=== PATIENT | female | born 1970 | race Caucasian/White ===

== ENCOUNTER → 2016-08-11 | Outpatient (CLI) | payer OTHER ==
[~2016-08-11] MED LIST: AMOXICILLIN 50500 MG PO; CEPHALEXIN500 M1 PO; DEPO-PROVER150 MG/M1 IM; EFFEXOR 3737.5 MG/TA PO; EFFEXOR 75M75 MG/TAB PO; FLEXERIL 1010 MG/TAB PO; FLEXERIL5 MG PO; IBU-8800 MG PO; LORTAB 5/500 501 TAB PO; MEDROL 4MG DOSPA4 MG PO; MOTRIN 600600 MG/TAB PO; MOTRIN 800800 MG/TAB PO; NAPROSYN500 MG PO; NO HOME MEDICATIONS; NORCO 325 MG-51 TAB PO; NORCO 325 MG-7.1 TAB PO; PENICILLIN V500 MG PO; PERIDEX (CHLOR480 ML MM; PREDNISONE20 MG PO; PROAIR HFA0.09 MG/AC IH; SEPTRA DS 8001 TAB PO; VALIUM 10MG10 MG/TAB PO; VALIUM 5MG T5 MG/TAB PO; VOLTAREN 75 DR75 MG PO; ZITHROMAX Z PA250 MG PO
== END ==
LOC: COL.RAD 12:28 → COL.LAB 12:28
DX: M51.36 Other intervertebral disc degeneration, lumbar region (principal)

== ENCOUNTER 2016-09-15 09:33 | Emergency (ER) | payer MEDICAID ==
[~2016-09-15] VITALS: Ht 162.6 cm; Wt 61.8 kg
[~2016-09-15 09:33] MED LIST changes: -EFFEXOR 75M75 MG/TAB PO; -PREDNISONE20 MG PO; -PROAIR HFA0.09 MG/AC IH; -VOLTAREN 75 DR75 MG PO; -ZITHROMAX Z PA250 MG PO
[2016-09-15 09:37] VITALS: BP 135/82
[2016-09-15] MEDS ORDERED: NORCO 325 MG-51 TAB PO (11:25)
[2016-09-15 11:29] LABS: PH 6 (5-8); SQUAMOUS EPITHELIAL 20-50 /hpf; URINE APPEARANCE Hazy; URINE BACTERIA Rare /hpf; URINE BILIRUBIN Negative (NEGATIVE); URINE BLOOD Negative (NEGATIVE); URINE COLOR Amber; URINE GLUCOSE Negative (NEGATIVE); URINE KETONE Trace (NEGATIVE); URINE RBC 0-2 /hpf
[2016-09-15 11:48] VITALS: PULSE 73; TEMP 97.3
== END 2016-09-15 11:46 | disposition home or self-care (01) ==
LOC: COL.ER 09:33
PROVIDERS: Nurse Practitioner
DX: S30.0XXA Contusion of lower back and pelvis, initial encounter (principal); W10.9XXA Fall (on) (from) unspecified stairs and steps, initial encounter
CPT/HCPCS: J1885

== ENCOUNTER 2016-11-06 12:05 | Emergency (ER) | payer MEDICAID ==
[~2016-11-06] VITALS: Ht 162.6 cm; Wt 61.4 kg
[2016-11-06 12:07] VITALS: BP 121/85; PULSE 88; TEMP 98
== END 2016-11-06 14:27 | disposition home or self-care (01) ==
LOC: COL.ER 12:05
DX: S43.401A Unspecified sprain of right shoulder joint, initial encounter (principal); W01.198A Fall on same level from slipping, tripping and stumbling with subsequent striking against other object, initial encounter; M25.551 Pain in right hip

== ENCOUNTER 2016-12-22 10:00 | Emergency (ER) | payer MEDICAID ==
[~2016-12-22] VITALS: Ht 162.6 cm; Wt 68.2 kg
[2016-12-22 10:02] VITALS: BP 126/79; TEMP 98.4
[2016-12-22] MEDS ORDERED: EFFEXOR 75M75 MG/TAB PO (10:06)
[2016-12-22] MEDS ORDERED: AMOXICILLIN 50500 MG PO (10:38)
[2016-12-22 10:56] VITALS: PULSE 86
== END 2016-12-22 10:56 | disposition home or self-care (01) ==
LOC: COL.ER 10:00
DX: H92.03 Otalgia, bilateral (principal); F17.210 Nicotine dependence, cigarettes, uncomplicated

== ENCOUNTER 2017-02-01 08:40 | Emergency (ER) | payer MEDICAID ==
[~2017-02-01] VITALS: Ht 162.6 cm; Wt 52.3 kg
[~2017-02-01 08:40] MED LIST changes: +EFFEXOR 75M75 MG/TAB PO
[2017-02-01 08:47] VITALS: BP 134/85; PULSE 74; TEMP 97.8
== END 2017-02-01 10:00 | disposition home or self-care (01) ==
LOC: COL.ER 08:40
DX: S63.501A Unspecified sprain of right wrist, initial encounter (principal); X50.0XXA Overexertion from strenuous movement or load, initial encounter; F32.9 Major depressive disorder, single episode, unspecified

== ENCOUNTER 2017-02-12 11:22 | Emergency (ER) | payer MEDICAID ==
[~2017-02-12] VITALS: Ht 162.6 cm; Wt 68.2 kg
[2017-02-12 11:24] VITALS: BP 142/92; TEMP 97.6
[2017-02-12 12:23] VITALS: PULSE 75
== END 2017-02-12 12:24 | disposition home or self-care (01) ==
LOC: COL.ER 11:22
DX: M25.531 Pain in right wrist (principal); M25.431 Effusion, right wrist
CPT/HCPCS: J1885

== ENCOUNTER 2017-02-13 13:09 | Emergency (ER) | payer MEDICAID ==
[2017-02-13 13:27] VITALS: BP 144/81; PULSE 76; TEMP 97.9
[2017-02-14] MEDS ORDERED: VOLTAREN 75 DR75 MG PO (18:34)
[2017-02-14] MEDS ORDERED: PREDNISONE20 MG PO (18:34)
== END 2017-02-13 14:59 | disposition home or self-care (01) ==
LOC: COL.ER 13:09
DX: G43.909 Migraine, unspecified, not intractable, without status migrainosus (principal); M25.531 Pain in right wrist; M25.431 Effusion, right wrist; F17.210 Nicotine dependence, cigarettes, uncomplicated; F32.9 Major depressive disorder, single episode, unspecified; G89.29 Other chronic pain; Z86.19 Personal history of other infectious and parasitic diseases; X50.3XXA Overexertion from repetitive movements, initial encounter
CPT/HCPCS: J1885

== ENCOUNTER 2017-02-14 16:53 | Emergency (ER) | payer MEDICAID ==
[~2017-02-14] VITALS: Ht 162.6 cm; Wt 68.2 kg
[2017-02-14 17:05] VITALS: TEMP 98.1
[2017-02-14] MEDS ORDERED: PREDNISONE20 MG PO (18:34)
[2017-02-14] MEDS ORDERED: VOLTAREN 75 DR75 MG PO (18:34)
[2017-02-14 18:50] VITALS: BP 172/99; PULSE 85
== END 2017-02-14 18:50 | disposition home or self-care (01) ==
LOC: COL.ER 16:53
DX: G89.29 Other chronic pain (principal); M25.531 Pain in right wrist; F17.210 Nicotine dependence, cigarettes, uncomplicated; Z87.19 Personal history of other diseases of the digestive system; Z98.51 Tubal ligation status
CPT/HCPCS: J7512

== ENCOUNTER 2017-02-26 14:44 | Emergency (ER) | payer MEDICAID ==
[~2017-02-26] VITALS: Ht 162.6 cm; Wt 68.2 kg
[~2017-02-26 14:44] MED LIST changes: +PREDNISONE20 MG PO; +VOLTAREN 75 DR75 MG PO
[2017-02-26 14:48] VITALS: BP 121/80; TEMP 98.6
[2017-02-26] MEDS ORDERED: ZITHROMAX Z PA250 MG PO (15:55)
[2017-02-26] MEDS ORDERED: PROAIR HFA0.09 MG/AC IH (15:55)
[2017-02-26 16:01] VITALS: PULSE 98
[2017-08-06] MEDS ORDERED: AMOXICILLIN 8751 TAB PO (13:50)
== END 2017-02-26 16:01 | disposition home or self-care (01) ==
LOC: COL.ER 14:44
DX: J20.9 Acute bronchitis, unspecified (principal); F17.200 Nicotine dependence, unspecified, uncomplicated; F32.9 Major depressive disorder, single episode, unspecified

== ENCOUNTER 2017-02-28 08:51 | Outpatient (RCR) | payer MEDICAID ==
[~2017-02-28 08:51] MED LIST changes: +PROAIR HFA0.09 MG/AC IH; +ZITHROMAX Z PA250 MG PO
[2017-04-09] MEDS ORDERED: ROBAXIN 75750 MG/TAB PO (10:30)
[2017-04-09] MEDS ORDERED: LAMICTAL ODT50 MG TL (10:31)
== END 2017-05-29 | disposition still patient (30) ==
LOC: MKS.ESL.PT
DX: M54.42 Lumbago with sciatica, left side (principal); M54.41 Lumbago with sciatica, right side; G89.29 Other chronic pain; F17.200 Nicotine dependence, unspecified, uncomplicated
CPT/HCPCS: G0283-GP

== ENCOUNTER 2017-04-09 10:25 | Emergency (ER) | payer MEDICAID ==
[~2017-04-09] VITALS: Ht 162.6 cm; Wt 68.2 kg
[2017-04-09 10:27] VITALS: BP 119/63; TEMP 98.2
[2017-04-09] MEDS ORDERED: ROBAXIN 75750 MG/TAB PO (10:30)
[2017-04-09] MEDS ORDERED: LAMICTAL ODT50 MG TL (10:31)
[2017-04-09 12:05] VITALS: PULSE 91
== END 2017-04-09 12:05 | disposition home or self-care (01) ==
LOC: COL.ER 10:25
DX: M25.562 Pain in left knee (principal); G89.29 Other chronic pain

== ENCOUNTER 2017-06-04 11:10 | Emergency (ER) | payer MEDICAID ==
[~2017-06-04] VITALS: Ht 162.6 cm; Wt 63.6 kg
[~2017-06-04 11:10] MED LIST changes: +LAMICTAL ODT50 MG TL; +ROBAXIN 75750 MG/TAB PO
[2017-06-04 11:13] VITALS: BP 117/75; TEMP 98.4
[2017-06-04 12:08] LABS: INFLUENZA A NEGATIVE; INFLUENZA B NEGATIVE
[2017-06-04] MEDS ORDERED: ZOFRAN 4MG T4 MG/TAB PO (13:48)
[2017-06-04 14:24] VITALS: PULSE 56
== END 2017-06-04 14:24 | disposition home or self-care (01) ==
LOC: COL.ER 11:10
PROVIDERS: Nurse Practitioner
DX: R11.10 Vomiting, unspecified (principal); R51 Headache; F32.9 Major depressive disorder, single episode, unspecified; F17.210 Nicotine dependence, cigarettes, uncomplicated
CPT/HCPCS: J1200; J1885; J2550

== ENCOUNTER 2017-07-23 14:44 | Emergency (ER) | payer SELFPAY ==
[~2017-07-23] VITALS: Ht 162.6 cm; Wt 65.9 kg
[~2017-07-23 14:44] MED LIST changes: +ZOFRAN 4MG T4 MG/TAB PO
[2017-07-23 14:45] VITALS: BP 121/84; PULSE 12; TEMP 97.8
[2017-07-23] MEDS ORDERED: BACTRIM DS 8001 TAB PO (16:30)
[2017-07-23] MEDS ORDERED: NORCO 325 MG-51 TAB PO (16:30)
== END 2017-07-23 16:40 | disposition home or self-care (01) ==
LOC: COL.ER 14:44
DX: N61.1 Abscess of the breast and nipple (principal)

== ENCOUNTER 2017-07-31 13:21 | Emergency (ER) | payer SELFPAY ==
[~2017-07-31] VITALS: Ht 162.6 cm; Wt 65.0 kg
[~2017-07-31 13:21] MED LIST changes: +BACTRIM DS 8001 TAB PO
[2017-07-31 13:24] VITALS: BP 141/64; PULSE 84; TEMP 98.1
[2017-07-31] MEDS ORDERED: ULTRAM 50MG TAB50 MG PO (14:56)
[2017-08-06] MEDS ORDERED: AMOXICILLIN 8751 TAB PO (13:50)
== END 2017-07-31 15:11 | disposition home or self-care (01) ==
LOC: COL.ER 13:21
DX: N61.1 Abscess of the breast and nipple (principal); F17.210 Nicotine dependence, cigarettes, uncomplicated

== ENCOUNTER 2017-09-10 10:39 | Emergency (ER) | payer SELFPAY ==
[~2017-09-10] VITALS: Ht 162.6 cm; Wt 65.0 kg
[~2017-09-10 10:39] MED LIST changes: +AMOXICILLIN 8751 TAB PO; +ULTRAM 50MG TAB50 MG PO
[2017-09-10 10:41] VITALS: BP 131/83; TEMP 97.9
[2017-09-10] MEDS ORDERED: BACTRIM DS 8001 TAB PO (11:23)
[2017-09-10 11:32] VITALS: PULSE 91
== END 2017-09-10 11:33 | disposition home or self-care (01) ==
LOC: COL.ER 10:39
DX: N61.0 Mastitis without abscess (principal); Z98.51 Tubal ligation status

== ENCOUNTER 2018-02-18 10:43 | Emergency (ER) | payer SELFPAY ==
[~2018-02-18] VITALS: Ht 162.6 cm; Wt 64.1 kg
[2018-02-18 10:50] VITALS: BP 129/78; TEMP 97.9
[2018-02-18 12:32] VITALS: PULSE 62
== END 2018-02-18 12:32 | disposition home or self-care (01) ==
LOC: COL.ER 10:43
DX: R11.10 Vomiting, unspecified (principal); F32.9 Major depressive disorder, single episode, unspecified; G89.29 Other chronic pain; F17.210 Nicotine dependence, cigarettes, uncomplicated; Z79.899 Other long term (current) drug therapy; Z98.51 Tubal ligation status
CPT/HCPCS: J1885; J2405

== ENCOUNTER 2018-03-15 09:39 | Emergency (ER) | payer SELFPAY ==
[~2018-03-15] VITALS: Ht 162.6 cm; Wt 61.4 kg
[2018-03-15 09:41] VITALS: TEMP 98.3
[2018-03-15] MEDS ORDERED: ZITHROMAX Z PA250 MG PO (11:08)
[2018-03-15 12:25] VITALS: BP 111/85; PULSE 70
== END 2018-03-15 12:25 | disposition home or self-care (01) ==
LOC: COL.ER 09:39
DX: J20.9 Acute bronchitis, unspecified (principal); F17.210 Nicotine dependence, cigarettes, uncomplicated
CPT/HCPCS: J1885

== ENCOUNTER 2018-10-31 06:33 | Emergency (ER) | payer SELFPAY ==
[~2018-10-31] VITALS: Ht 10.2 cm; Wt 65.9 kg
[2018-10-31 06:37] VITALS: TEMP 97
[2018-10-31] MEDS ORDERED: ZOFRAN ODT8 MG PO (07:04)
[2018-10-31 08:36] VITALS: BP 103/62; PULSE 91
== END 2018-10-31 08:37 | disposition home or self-care (01) ==
LOC: COL.ER 06:33
DX: R11.0 Nausea (principal); Z98.51 Tubal ligation status; Z87.891 Personal history of nicotine dependence
CPT/HCPCS: J1885; J2550

== ENCOUNTER 2019-02-03 09:40 | Emergency (ER) | payer SELFPAY ==
[~2019-02-03] VITALS: Ht 162.6 cm; Wt 68.2 kg
[~2019-02-03 09:40] MED LIST changes: +ZOFRAN ODT8 MG PO
[2019-02-03 09:45] VITALS: BP 135/77; PULSE 82; TEMP 97.2
[2019-02-03] MEDS ORDERED: GENTAMICIN EYE D5 ML OD (10:12)
== END 2019-02-03 10:41 | disposition home or self-care (01) ==
LOC: COL.ER 09:40
DX: S05.02XA Injury of conjunctiva and corneal abrasion without foreign body, left eye, initial encounter (principal); F17.210 Nicotine dependence, cigarettes, uncomplicated; X58.XXXA Exposure to other specified factors, initial encounter

== ENCOUNTER 2019-05-24 08:42 | Emergency (ER) | payer SELFPAY ==
[~2019-05-24] VITALS: Ht 162.6 cm; Wt 68.2 kg
[~2019-05-24 08:42] MED LIST changes: +GENTAMICIN EYE D5 ML OD
[2019-05-24 08:49] VITALS: BP 137/89; TEMP 97.5
[2019-05-24] MEDS ORDERED: DOXYCYCLINE 10100 MG PO (09:19)
[2019-05-24 09:26] VITALS: PULSE 93
== END 2019-05-24 09:26 | disposition home or self-care (01) ==
LOC: COL.ER 08:42
DX: M79.89 Other specified soft tissue disorders (principal); F32.9 Major depressive disorder, single episode, unspecified; F17.210 Nicotine dependence, cigarettes, uncomplicated; Z98.51 Tubal ligation status; Z98.890 Other specified postprocedural states

== ENCOUNTER 2019-07-10 09:24 | Emergency (ER) | payer SELFPAY ==
[~2019-07-10] VITALS: Ht 162.6 cm; Wt 68.2 kg
[~2019-07-10 09:24] MED LIST changes: +DOXYCYCLINE 10100 MG PO
[2019-07-10 09:29] VITALS: BP 130/84; PULSE 98; TEMP 98.8
[2019-07-10 10:00] LABS: STREP SCREEN NEGATIVE
== END 2019-07-10 11:51 | disposition left against medical advice (07) ==
LOC: COL.ER 09:24
PROVIDERS: Emergency Medicine
DX: J11.1 Influenza due to unidentified influenza virus with other respiratory manifestations (principal); F17.210 Nicotine dependence, cigarettes, uncomplicated; Z98.51 Tubal ligation status
CPT/HCPCS: J1885

== ENCOUNTER 2020-10-01 02:37 | Observation (INO) | payer SELFPAY ==
[~2020-10-01] VITALS: Ht 162.6 cm; Wt 72.7 kg
[2020-10-01 02:53] LABS: COLLECTION METHOD CLEAN CATCH
[2020-10-01 03:06] LABS: MUCOUS Present /lpf; PH 5 (5-8); URINE APPEARANCE Hazy; URINE BACTERIA None Seen /hpf; URINE BILIRUBIN Negative (NEGATIVE); URINE BLOOD 2+ (NEGATIVE); URINE COLOR Yellow; URINE GLUCOSE Negative (NEGATIVE); URINE KETONE Negative (NEGATIVE); URINE LEUKOCYTE ESTERASE 3+ (NEGATIVE); URINE NITRATE Negative (NEGATIVE); URINE PROTEIN(semi-quant) Negative (NEGATIVE)
[2020-10-01 03:27] LABS: BASO # 0.1 (0.0-0.2); BASO % 0.8 % (0.0-2.0); EOS # 0.1 (0.0-0.7); EOS % 0.6 % (0-4.0); GRAN # 6.9 (1.4-6.5); GRAN % 69.1 % (42.2-75.2); HEMATOCRIT 40.8 % (37.0-47.0); LYMPH # 2.3 (1.2-3.4); LYMPH % 22.5 % (20.0-51.0); MEAN CELL VOLUME 91 fl (80.0-100.0); MEAN CORPUSCULAR HEMOGLOBIN 29 pg (27.0-31.0); MEAN CORPUSCULAR HGB CONC 32 g/dl (33.0-37.0); MEAN PLATELET VOLUME 10.8 fl (7.4-10.4); MONO # 0.7 (0.1-0.6); MONO % 6.5 % (1.7-9.3); PLATELET COUNT 322 K/mm3 (130-400); RED BLOOD COUNT 4.47 M/mm3 (4.10-5.30)
[2020-10-01 03:39] LABS: BILIRUBIN,TOTAL 0.6 mg/dL (0.0-1.0); CALCIUM 8.9 mg/dL (8.4-10.2); CREATININE, serum 0.95 (0.52-1.25); TOTAL PROTEIN 8.2 gm/dL (6.4-8.2)
[2020-10-01 03:44] LABS: POTASSIUM 4.7 mmol/L (3.4-5.0)
[2020-10-01 08:00] VITALS: BP 125/69; PULSE 65; PULSE 95; TEMP 97.9
--- NOTE | 2020-10-01 08:46 | NUR ---
Patient lying in bed with eyes closed. Patient was brought to room from ER via wheelchair. Transferred self from wheelchair to bed. Patient is alert and oriented x4. Rates pain all over abd 5/10, does moan occasionally and pain increases with movement. Patient is not certain when her last bowel movement was. Audible bowel sounds in all quads. Patient does have a bruise above left eyebrow that she says she sustained from running into a door. Patient oriented to room.
--- NOTE | 2020-10-01 10:13 | NUR ---
Lab in room and after multiple attempts unable to get labs done due to poor venous access. NAOMY Kellogg, updated.
[2020-10-01 11:32] VITALS: BP 110/63; PULSE 68; TEMP 97.8
--- NOTE | 2020-10-01 11:42 | NUR ---
Patient lying in bed on right side with eyes closed. Opens eyes when name called out. Explain that we are going to apply Nicotine patch and also connect her to IV fluids. Patient assisted into bathroom to urinate, returns to bed. Connected to IV fluids and patch applied. Rating pain in abd 6/10 at this time. Denies additional needs.
--- NOTE | 2020-10-01 13:56 | NUR ---
Lying in bed talking with visitor. Discuss with the patient bowel rest and being NPO. Provide mouth swabs to the patient to moisten mouth. Rating pain 7/10 in abd at this time. Contact Dr. Jordan and he will place orders for pain medication at this time. Will administer as prescribed after pharmacy verifies. Patient is aware and agrees to plan.
--- NOTE | 2020-10-01 15:17 | NUR ---
Atm Mechanic met with patient to discuss discharge planning. Patient kept her eyes closed during intake and SW had to ask patient to repeat herself throughout the intake as she spoke very softly. Patient reports she lives in [place] with her son, Feliciano and her roommate, Valerie (ph#[phone]). Patient does not have a phone number for Feliciano as she doesn't have a phone. Patient also states her boyfriend, Tomás stays with them often. Patient does not have primary care, but states she may be open to having an appointment set up at [facility] as she does not have health insurance at this time. Patient does not use DME and is independent with ADLS. Patient does not have DPOA-HC. Patient states she is seperated, but still legally to her , Lacy Low. SW advised patient that Lacy would be her legal next of kin and health care decision maker if she was unable to make health care decisions since she does not have DPOA-HC. Patient does not want Lacy to make her medical decisions and asks that SW follow up later or tomorrow when she's feeling better to complete DPOA-HC. Discharge Plan: Home
[2020-10-01 16:00] VITALS: BP 132/73; PULSE 82; TEMP 98.6
--- NOTE | 2020-10-01 16:30 | NUR ---
Patient is sleeping in bed, no signs of facial or extremities expression of pain.
--- NOTE | 2020-10-01 17:30 | NUR ---
Lying in bed with eyes closed. Respirations even and unlabored. No signs or symptoms of discomfort noted at this time. Agree with assessment and notes entered by Lizette student nurse.
[2020-10-01 20:00] VITALS: BP 117/58; PULSE 69; TEMP 97.4
--- NOTE | 2020-10-01 20:30 | NUR ---
Patient assesed at this time. Alert and oriented x 4, and able to make needs known. Denies having pain and discomfort at this time. Peripheral IV to left hand with fluids running per orders. Denies SOB and dyspnea. LS CTA. Respirations even and unlabored. Capillary refill less than 3 seconds. Non-tenting skin turgor. BS hypoactive. Abdomen round and firm. Denies passing gas. No edema. Voices no questions, needs, or concerns at this time. Resting in bed with call light within reach.
--- NOTE | 2020-10-01 23:15 | NUR ---
Patient complained of headache. Only has order for morphine. Called NAOMY Mcmullen. New order for Acetamionophen. Given as ordered at this time. Voices no further questions, needs, or concerns at this time. Resting in bed with call light within reach.
[2020-10-02 00:16] VITALS: BP 121/79; PULSE 70; TEMP 97.7
[2020-10-02 04:09] VITALS: BP 120/73; PULSE 65; TEMP 98.1
--- NOTE | 2020-10-02 05:41 | NUR ---
Patient had complained of abdominal pain, and was given PRN Acetaminophen for pain. Resting in bed with call light within reach and eyes closed at this time. Patient continues on IV fluids and antibiotics per orders. Did take sips of water and ice chips during the night. Denies nausea. When taken to the bathroom, patient is passing lots of gas this morning. Voices no questions, needs, or concerns at this time. Resting in bed with call light within reach.
--- NOTE | 2020-10-02 07:35 | NUR ---
PATIENT ALERT & ORIENTED. VITAL SIGNS STABLE. RATES INTERMITTENT ABDOMINAL PAIN /. PATIENT ADMITTED WITH SMALL BOWEL OBSTRUCTION AND UTI. BOWEL SOUNDS HYPOACTIVE X4. PATIENT PASSING GAS. TOLERATING ICE CHIPS AND SIPS OF LIQUID WITH NO N/V. ALL OTHER ASSESSMENTS WITHIN NORMAL LIMITS. IV LEFT HAND WITH LR RUNNING @ 75 ML/HR WITH NO REDNESS, DRAINAGE, OR EDEMA. DENIES OTHER NEEDS AT THIS TIME. WILL CONTINUE TO MONITOR PAIN AND FOR ANY N/V. CALL LIGHT WITHIN REACH.
--- NOTE | 2020-10-02 07:35 | NUR ---
PATIENT SHIFT ASSESSMENT COMPLETED BY THIS NURSE AND SN STANFORD. ASSESSMENT DOCUMENTED BY SN STANFORD.
[2020-10-02 07:49] VITALS: BP 115/82; PULSE 78; TEMP 97.9
--- NOTE | 2020-10-02 08:05 | NUR ---
LAB NOTIFIED THIS NURSE THAT THEY HAVE ATTEMPTED TO OBTAIN AM LABS TWICE THIS MORNING WITHOUT SUCCESS. NEW [employer] COMES ON AT 1400. NAOMY BAIN NOTIFIED. VORAlyse THAT ITS OKAY TO WAIT AND ATTEMPT TO OBTAIN AM LABS WHEN THE NEXT SHIFT ARRIVES. LAB CALLED AND NOTIFIED.
--- NOTE | 2020-10-02 09:30 | NUR ---
PATIENT COMPLAINED OF NAUSEA TO SN RADHA. UPON ENTRY TO ROOM JAZMINET VOMITED SMALL AMOUNT OF EMESIS AFTER TRYING FEW BITES OF BREAKFAST TRAY. PATIENT GIVEN IV ONDANSETRON. PATIENT ALERT & ORIENTED. WILL CONTINUE TO MONITOR.
[2020-10-02 12:00] VITALS: BP 112/77; PULSE 104; TEMP 97.7
[2020-10-02 14:43] LABS: BASO % 0.4 % (0.0-2.0); EOS % 0.6 % (0-4.0); GRAN # 5.4 (1.4-6.5); GRAN % 77.6 % (42.2-75.2); HEMATOCRIT 40.3 % (37.0-47.0); HEMOGLOBIN 12.9 g/dl (12.5-16.0); LYMPH # 1.2 (1.2-3.4); LYMPH % 17.1 % (20.0-51.0); MEAN CELL VOLUME 92 fl (80.0-100.0); MEAN CORPUSCULAR HEMOGLOBIN 30 pg (27.0-31.0); MEAN CORPUSCULAR HGB CONC 32 g/dl (33.0-37.0); MEAN PLATELET VOLUME 10.9 fl (7.4-10.4); MONO # 0.3 (0.1-0.6); PLATELET COUNT 228 K/mm3 (130-400); RED BLOOD COUNT 4.38 M/mm3 (4.10-5.30); REDCELL DISTRIBUTION WIDTH-CV 12.7 % (11.5-14.5)
[2020-10-02 14:51] LABS: ALBUMIN 3.5 gm/dL (3.5-5.0); BILIRUBIN,TOTAL 0.1 mg/dL (0.0-1.0); CALCIUM 8.5 mg/dL (8.4-10.2); CREATININE, serum 0.87 (0.52-1.25); POTASSIUM 3.9 mmol/L (3.4-5.0); TOTAL PROTEIN 6.8 gm/dL (6.4-8.2)
--- NOTE | 2020-10-02 15:24 | NUR ---
Refuse Driver followed up with patient on DPOA-HC. SW again explained that without DPOA-HC, if patient were unable to make her own medical decisions, her Lacy would legally have to be contacted to be the decision maker as he is her legal next of kin. Patient states SW would not be able to find him. Patient then agrees to complete DPOA-HC and wanted to designate her daughters, Rachel and Sally. SW assisted patient in completing DPOA-HC. MARSHALL and MARSHALL Chinchilla provided witness signature. SW provided original and copies to patient then placed a copy on patient's chart.
--- NOTE | 2020-10-02 16:00 | NUR ---
Patient will discharge home today and needs a follow up appointment scheduled at [facility]. MARSHALL met with patient to discuss the follow up appointment. MARSHALL advised patient that she may be able to get into the [facility] quicker than the [place] location. Patient states is too far away. MARSHALL contacted the [facility] and scheduled her appointment for 11/20/20 @ 1300. MARSHALL provided appointment to Coby jacobsen. MARSHALL faxed records to [facility].
--- NOTE | 2020-10-02 16:42 | NUR ---
PATIENT EDUCATION PROVIDED AND PATIENT SIGNATURES DOCUMENTED. PATIENT VERBALIZES UNDERSTANDING. PATIENT DISCHARGED AND WALKED OUT BY THIS STUDENT NURSE AND FLORA LYNCH.
== END 2020-10-02 16:42 | disposition home or self-care (01) ==
LOC: COL.ER 02:37 → SURG 06:28
PROVIDERS: Emergency Medicine; Physician Assistant; ADMIT Student in an Organized Health Care Education/Training Program
DX: R10.9 Unspecified abdominal pain (principal); R11.2 Nausea with vomiting, unspecified; E87.2 Acidosis; K59.00 Constipation, unspecified; G89.29 Other chronic pain; F17.210 Nicotine dependence, cigarettes, uncomplicated; F19.10 Other psychoactive substance abuse, uncomplicated; F32.9 Major depressive disorder, single episode, unspecified; Z98.51 Tubal ligation status; Z86.19 Personal history of other infectious and parasitic diseases
CPT/HCPCS: 99222-AI; 99232-AI; 99239; G0378; J0696; J2270; J2405; J3010; J7120; Q9967

== ENCOUNTER 2020-11-24 22:28 | Emergency (ER) | payer OTHER ==
[~2020-11-24] VITALS: Ht 162.6 cm; Wt 75.0 kg
[2020-11-24 22:32] VITALS: TEMP 97.6
[2020-11-24] MEDS ORDERED: PREDNISONE20 MG PO (23:42)
[2020-11-24 23:50] VITALS: BP 130/86; PULSE 102
== END 2020-11-24 23:53 | disposition home or self-care (01) ==
LOC: COL.ER 22:28
DX: M62.838 Other muscle spasm (principal); M25.511 Pain in right shoulder; F17.210 Nicotine dependence, cigarettes, uncomplicated
CPT/HCPCS: J1100; J1885; J3360

== ENCOUNTER 2021-01-21 10:46 | Emergency (ER) | payer OTHER ==
[~2021-01-21] VITALS: Ht 162.6 cm; Wt 60.0 kg
[2021-01-21 11:03] VITALS: BP 119/77; PULSE 84; TEMP 97.7
== END 2021-01-21 11:22 | disposition home or self-care (01) ==
LOC: COL.ER 10:46
DX: S61.411A Laceration without foreign body of right hand, initial encounter (principal); Z23 Encounter for immunization; W26.8XXA Contact with other sharp object(s), not elsewhere classified, initial encounter

== ENCOUNTER 2022-01-11 15:41 | Emergency (ER) | payer OTHER ==
[~2022-01-11] VITALS: Ht 162.6 cm; Wt 75.0 kg
[2022-01-11 15:44] VITALS: TEMP 99.4
[2022-01-11 18:17] VITALS: BP 144/78; PULSE 60
== END 2022-01-11 18:17 | disposition home or self-care (01) ==
LOC: COL.ER 15:41
DX: U07.1 COVID-19 (principal); F17.210 Nicotine dependence, cigarettes, uncomplicated; Z28.310 Unvaccinated for COVID-19
CPT/HCPCS: J1885

== ENCOUNTER 2023-12-13 03:54 | Emergency (ER) | payer SELFPAY ==
[~2023-12-13] VITALS: Ht 162.6 cm; Wt 75.0 kg
[2023-12-13 04:04] VITALS: BP 134/97; TEMP 97.4
[2023-12-13] MEDS ORDERED: CORTISPORIN OTI10 ML OT (04:40)
[2023-12-13 04:46] VITALS: PULSE 70
== END 2023-12-13 04:47 | disposition home or self-care (01) ==
LOC: COL.ER 03:54
DX: H60.92 Unspecified otitis externa, left ear (principal); F17.210 Nicotine dependence, cigarettes, uncomplicated